=== PATIENT | female | born 1985 | race Caucasian/White ===

== ENCOUNTER 2017-06-09 20:18 | Emergency (ER) | payer SELFPAY ==
[2017-06-09 20:31] VITALS: PULSE 65; RESP 18
--- NOTE | 2017-06-09 20:45 | EDPHY ---
General - History Smoking Status: Current some day smoker Narrative: CHIEF COMPLAINT: Left lower quadrant pain, left flank pain HISTORY OF PRESENT ILLNESS: Patient complains of sudden onset of left lower quadrant flank pain that started earlier this evening. Severe, constant pain. No improvement. No position of comfort. Dysuria. No vaginal discharge. LMP was completed 3 days ago. No trauma or injury. No history of kidney stones. No history of ovarian cysts or torsion. No other associated complaints or modifying factors. REVIEW OF SYSTEMS: Ten systems reviewed and are negative unless otherwise noted in the HPI PCP: None SPECIALISTS: None PAST MEDICAL HISTORY: None PAST SURGICAL HISTORY: None SOCIAL HISTORY: Smoker. No alcohol. No illicit substance use. FAMILY HISTORY: Noncontributory EXAMINATION General Appearance: Alert, no distress, in obvious discomfort. Diaphoretic Head: normocephalic, atraumatic Eyes: Pupils equal and round, no conjunctival pallor or injection ENT, Mouth: Mucous membranes moist Neck: Normal inspection, supple, non-tender Respiratory: Lungs are clear to auscultation Cardiovascular: Regular rate and rhythm Gastrointestinal: Obese Abdomen is soft and nondistended. There is tenderness in left lower quadrant. Difficult to fully examine the patient as she is in significant pain. There is no guarding. No rigidity. There is moderate left- sided CVA tenderness. Nonacute abdomen. Back: non-tender, no bony abnormalities Neurological: A&O, nonfocal, strength is symmetric. Normal mental status. Skin: Warm and diaphoretic. No rash. No petechiae purpura Extremities: Nontender, no pedal edema Psychiatric: Mood and affect normal DIFFERENTIAL DIAGNOSES: Including but not limited to renal colic, ureteral stone, torsion, cyst, ruptured ovarian cysts, colitis, diverticulitis, enteritis MDM: 9:00 p.m. Left lower quadrant and left flank pain. Suspect stone given the location of the pain I have ordered ultrasound to rule out torsion as this is the more emergent scenario. Higher suspicion is for renal colic or ureteral stone. Laboratory studies pending. IV fluid, IV Dilaudid and Zofran ordered. She is obviously in discomfort but she is stable and in no acute distress. 9:45 p.m. Laboratory studies reviewed. She has have a glucose of 370. I have ordered a beta hydroxybutyrate and a blood gas. I do not suspect DKA, but she has no known diabetes. Urinalysis suggest the possibility of stone. I have ordered CT scan of the abdomen pelvis without contrast to evaluate. She is starting to feel better but still has some pain. No acute distress. The official read on the pelvic ultrasound has not yet been relayed to me. There is no mention of torsion by the technician test systems. 9:55 p.m. CBC was ordered at 8:40 p.m.. This is not yet been documented as received. This was sent down significant time ago. Will contact the lab to find out what the ED lay and laboratory studies. 10:00 p.m. Contacted by radiologist Dr. Gauthier. Pelvic ultrasound reveals no evidence of torsion. There is incidental discovery of a left ureteral stone, 4 mm. No hydro. 10:[address] scan without contrast has been performed as well. The ultrasound revealed a possible 4 mm distal ureteral stone without any evidence of hydronephrosis. Dr. Gauthier contacted me regarding the CT scan. CT scan reveals a stone in the distal left ureter and at the UVJ. There is significant stranding and hydronephrosis. Continue with IV fluid resuscitation, pain medication. 11:00 p.m. Patient re-evaluated. She is starting to feel better. Pain is improving but not resolved. Toradol as been ordered. One additional L fluid. Venous blood gas does not reveal any abnormality of the pH. There is no evidence of HHS or DKA. Continue with IV fluid resuscitation and pain control. 11:35 p.m. Patient re-evaluated. She is feeling significantly better after the Toradol. She has received nearly 3 L IV fluid resuscitation. Her vital signs are all within normal limits. She has not been nauseated or vomiting. I did offer admission to the hospital for pain control but she feels that her pain is well tolerated at this time. She will be discharged home with oral pain medication, oral Zofran. She has instructions to follow up with primary care physician regarding the hyperglycemia for diabetic workup. She has instructions to follow up with Urology for definitive care for the stone. ED precautions for worsening pain, fever, nausea or vomiting. 11:50 p.m. Patient has ambulated in the emergency department without any assistance. She continues to feel well. She would like to be discharged home. (Bennett Sandoval) The patient was evaluated and managed by the physician tax assistant. I have reviewed this chart and I agree with the findings and plan of care as documented , as indicated by my signature. I am the secondary supervising physician. ( Miley Stern) - Objective Vital Signs: Initial Vital Signs Temperature (C) 36.8 C 06/09/17 20:29 Heart Rate 65 06/09/17 20:29 Respiratory Rate 18 06/09/17 20:29 Blood Pressure 156/109 H 06/09/17 20:29 O2 Sat (%) 95 06/09/17 20:29 O2 Delivery Mode Room Air Allergies/Adverse Reactions: No Known Allergies Allergy (Unverified 06/09/17 20:29) Home Medications: Medication Instructions Recorded Ondansetron Odt [Zofran Odt 4 mg 4 mg PO Q6 PRN #12 tab 06/09/17 (*)] oxyCODONE HCL/ACETAMINOPHEN 1 each PO Q4-6PRN PRN #13 tablet 06/09/17 [Percocet 5-325 mg Tablet] Laboratory Results: Laboratory Results 06/09/17 22:11 06/09/17 20:20 Medications Given: Discontinued Medications Hydromorphone HCl (Dilaudid) 1 mg IVP EDNOW ONE Stop: 06/09/17 20:56 Last Admin: 06/09/17 21:25 Dose: 1 mg Sodium Chloride (Ns) 1,000 mls @ 0 mls/hr IV EDNOW ONE; Wide Open PRN Reason: Protocol Stop: 06/09/17 20:56 Last Admin: 06/09/17 21:25 Dose: 1,000 mls Sodium Chloride (Ns) 1,000 mls @ 0 mls/hr IV EDNOW ONE; Wide Open PRN Reason: Protocol Stop: 06/09/17 21:54 Last Admin: 06/09/17 23:06 Dose: 1,000 mls Ketorolac Tromethamine (Toradol) 30 mg IVP EDNOW ONE Stop: 06/09/17 21:46 Last Admin: 06/09/17 23:06 Dose: 30 mg Ondansetron HCl (Zofran) 4 mg IVP EDNOW ONE Stop: 06/09/17 20:56 Last Admin: 06/09/17 21:25 Dose: 4 mg Ondansetron HCl (Zofran Odt 4 Mg Prepack#2) 1 btl TAKEHOME EDNOW ONE Stop: 06/09/17 23:55 Last Admin: 06/10/17 00:20 Dose: 1 btl Oxycodone/Acetaminophen (Percocet 5/325mg Prepack#4) 1 btl TAKEHOME EDNOW ONE Stop: 06/09/17 23:55 Last Admin: 06/10/17 00:20 Dose: 1 btl Departure - Departure Disposition: Home, Routine, Self-Care Clinical Impression: Ureteral stone with hydronephrosis, Flank pain, Hyperglycemia Condition: Good Instructions: Oxycodone/Acetaminophen (By mouth), Ondansetron (By mouth), Renal Colic (ED), Hyperglycemia, Non-Diabetic (ED), Hydronephrosis (ED), Ureteral Stones (ED) Additional Instructions: 1. Increase fluid intake 2. Pain medications as prescribed as needed 3. Follow up with primary care physician to discuss the elevated blood sugar 4. Follow up with Urology for the stone 5. ED precautions as discussed Referrals: Patient,NotPresent [Unknown] - As per Instructions Des Rabago MD [Medical Doctor] - As per Instructions Negrito Mcdonald DO [Medical Doctor] - As per Instructions [facility],. [Clinic] - As per Instructions Stand Alone Forms: Work Excuse Prescriptions: Ondansetron Odt [Zofran Odt 4 mg (*)] 4 mg PO Q6 PRN #12 tab PRN Reason: Nausea/Vomiting, Use 1st oxyCODONE HCL/ACETAMINOPHEN [Percocet 5-325 mg Tablet] 1 each PO Q4-6PRN PRN # 13 tablet PRN Reason: Pain, Breakthrough
[2017-06-09 20:55] LABS: COLOR YELLOW; LEUKOCYTE ESTERASE,URINE NEGATIVE (NEGATIVE); NITRITE,URINE NEGATIVE (NEGATIVE)
[2017-06-09] MEDS ORDERED: ONDANSETRON 4 MG/2 ML VIAL IVP ONE (20:55)
[2017-06-09] MEDS ORDERED: NS 1,000 ML IV ONE ×2 (20:55→21:53)
[2017-06-09] MEDS ORDERED: HYDROmorphONE/DILAUDID 1 MG/ML INJ IVP ONE (20:55)
[2017-06-09 20:59] LABS: ALANINE AMINOTRANSFERASE 43 IU/L (9-52); ALBUMIN 3.8 g/dL (3.5-5.0); ALKALINE PHOSPHATASE 137 IU/L (38-126); ANION GAP 12 mEq/L (8-16); ASPARTATE AMINOTRANSFERASE 33 IU/L (14-46); BILIRUBIN,TOTAL 0.8 mg/dL (0.1-1.4); BILIRUBIN-CONJUGATED 0.3 mg/dL (0.0-0.5); BILIRUBIN-UNCONJUGATED 0.5 mg/dL (0.0-1.1); CALCIUM 10.1 mg/dL (8.5-10.4); CARBON DIOXIDE 23 mEq/l (22-31); CHLORIDE 101 mEq/L (97-110); GLOMERULAR FILTRATION RATE > 60; GLUCOSE 379 mg/dL (70-100); POTASSIUM 4.1 mEq/L (3.5-5.2); SODIUM 136 mEq/L (134-144); TOTAL PROTEIN 7.3 g/dL (6.3-8.2)
[2017-06-09 21:29] LABS: BACTERIA TRACE /hpf (NONE SEEN); MUCUS TRACE /lpf (NONE-1+)
[2017-06-09] MEDS ORDERED: KETOROLAC 30 MG/1 ML SDV IVP ONE (21:45)
[2017-06-09 22:21] LABS: % IMMATURE GRANULYOCYTES 0.5 % (0.0-1.1); ABSOLUTE IMMATURE GRANULOCYTES 0.07 10^3/uL (0.00-0.10); ADD DIFF? NO; ADD MORPH? NO; ADD SCAN? NO; ATYPICAL LYMPHOCYTE FLAG 10 (0-99); FRAGMENT RBC FLAG 0 (0-99); HEMOGLOBIN 14.3 g/dL (12.6-16.3); LEFT SHIFT FLG 0 (0-99); LIPEMIA HEMOLYSIS FLAG 90 (0-99); MEAN CELL HEMOGLOBIN 30.2 pg (27.9-34.1); MEAN CELL HEMOGLOBIN CONCENTR. 34.9 g/dL (32.4-36.7); MEAN CELL VOLUME 86.7 fL (81.5-99.8); MEAN PLATELET VOLUME 11.8 fL (8.7-11.7); PCO2 VENOUS 44 mmHg (40-44); PH VENOUS BLOOD 7.34 (7.31-7.42); PLATELET CLUMPS FLAG 0 (0-99); PLATELET COUNT 197 10^3/uL (150-400); PO2 VENOUS 74 mmHg (35-40); RED BLOOD CELL COUNT 4.73 10^6/uL (4.18-5.33); RED CELL DISTRIBUTION WIDTH 13.1 % (11.5-15.2); TCO2 VENOUS 25 mEq/L (23-27); VEN MEASURED OXYGEN SATURATION 93 % (65-75)
[2017-06-09 23:43] VITALS: BP 131/89; O2SAT 94
[2017-06-09] MEDS ORDERED: OXYCODONE/APAP 5/325MG PREPACK#4 BTL TAKEHOME ONE (23:54)
[2017-06-09] MEDS ORDERED: ONDANSETRON 4MG PREPACK#2 BTL TAKEHOME ONE (23:54)
[2017-06-10 00:15] VITALS: TEMP 98.2
== END 2017-06-10 00:24 | disposition home or self-care (01) ==
DX: N13.2 Hydronephrosis with renal and ureteral calculous obstruction (principal); F17.200 Nicotine dependence, unspecified, uncomplicated; R73.9 Hyperglycemia, unspecified; E86.9 Volume depletion, unspecified
CPT/HCPCS: 96374; J1170; J1885; J2405